=== PATIENT | male | born 2000 | race Caucasian/White ===

== ENCOUNTER → 2023-09-06 | Outpatient (CLI) | payer BC, OTHER ==
--- NOTE | 2023-09-07 09:38 | US ---
EXAMINATION TYPE: US scrotum with doppler. Grayscale and color Doppler Duplex imaging performed of ernesto gonzalez scrotum. DATE OF EXAM: 09/06/2023 COMPARISON: NONE CLINICAL INDICATION: Male, 23 years old with history of N43.3 HYDROCELE, UNSPECIFIED; Follow up hydro lauren seen on outside ultrasound 8 months ago EXAM MEASUREMENTS: TESTICLES: Right Testicle: 5.4 x 2.6 x 3.2 cm Left Testicle: 5.3 x 2.6 x 3.5 cm EPIDIDYMIS HEAD: Right Epididymis: 2.1 cm Left Epididymis: 1.5 cm Doppler performed to assess for testicular vascularity; good bilateral color flow and waveforms are s een. There is no evidence of testicular torsion. Presence of hydroceles: no Presence of varicoceles: no IMPRESSION: 1. Unremarkable scrotal ultrasound
== END | disposition home or self-care (01) ==
LOC: RADUSWWP 10:56
PROVIDERS: ATTEND Family Medicine
DX: N43.3 Hydrocele, unspecified (principal)
CPT/HCPCS: 76870; 93975